=== PATIENT | male | born 1945 | race Caucasian/White ===

== ENCOUNTER 2017-02-21 13:00 | Emergency (ER) | payer MEDICARE, BC ==
[2017-02-21] VITALS (10 sets, daily range): BP systolic 100–142; BP diastolic 61–74; PULSE 89–146; RESP 16; TEMP 97.5; O2SAT 99–100
[~2017-02-21] VITALS: Ht 180.3 cm; Wt 88.0 kg
[~2017-02-21 13:00] MED LIST: BUDE0.5S NEB; FLEC1TAB8 PO; FLUTICASONE SPRAY; LUMBAR BACK BRA1 MIS; ROSU10 PO; ROXICET PO; TYLE325T PO; VENTAER INH; WARF-60 PO; XOLA150S SQ; ZANT150T2 PO; [UNRECOGNIZED DRUG - OTHER] PO
--- NOTE | 2017-02-21 13:13 | PD ---
HPI Chief Complaint: Cardiac Complaint Time Seen by Provider: 13:07 Travel History International Travel<30 days: No Contact w/Intl Traveler<30days: No Traveled to known affect area: No History of Present Illness HPI The patient is a 71-year-old male who presents emergency department for palpitations and tachycardia. The patient has a history of intermittent/ paroxysmal atrial fibrillation and is currently on warfarin and flecainide. The patient takes flecainide 50 mg twice a day and is followed by his client support coordinator/fruit checker, Dr. Hernandez. The patient states he is currently babysitting his grandchildren and states there was a lot of commotion in the house earlier today between the animals and the grandchildren, he felt his heart rate speed up and go in A. fib. The patient states he will intermittently go in atrial fibrillation, however, never lasts more than several hours. He took a Cardizem 60 mg orally at home, however, his heart rate remains elevated. He denies any chest pain, shortness of breath, nausea, vomiting, abdominal pain, or diaphoresis. The patient's primary physician is Dr. Sosa. [facility] Past Medical History Arthritis: Yes Asthma: Yes Atrial Fibrillation: Yes Anxiety: Yes Depression: No Heart Rhythm Problems: Yes (A FIB) Cancer: No Cardiovascular Problems: No High Cholesterol: Yes Chest Pain: No Congestive Heart Failure: No COPD: No Cerebrovascular Accident: No Diabetes: No Diminished Hearing: No Endocrine: No Gastrointestinal Disorders: Yes (ACID INDEGESTION) GERD: Yes Gout: Yes Genitourinary: No Headaches: No Hepatitis: No Hiatal Hernia: No Hypertension: No Immune Disorder: No Implanted Vascular Access Dvce: Yes Kidney Stones: No Musculoskeletal: Yes Neurologic: No Psychiatric: No Reproductive: No Respiratory: Yes Immunizations Current: Yes Migraines: No Renal Failure: No Seizures: No Sickle Cell Disease: No Sleep Apnea: No Thyroid Disease: No Ulcer: No PNEUMOCCOCAL Vaccine (Year): 2 Past Surgical History Abdominal Surgery: Yes (GALL BLADDER) AICD: No Body Medical Devices: LEFT KNEE PARTIAL REPLACEMENT; LENS RIGHT EYE; SIDDHARTH IN BACK Cholecystectomy: Yes Ear Surgery: No Eye Surgery: Yes (RIGHT CATARACT EXTRACTION WITH LENS IMPLANT) Genitourinary Surgery: No Gynecologic Surgery: No Insulin Pump: Yes Joint Replacement: Yes (PARTIAL LEFT KNEE REPLACEMENT) Neurologic Surgery: Yes (LAMINECTOMY L4-L5) Oral Surgery: No Pacemaker: No Other Surgery: Yes (BACK) Social History Alcohol Use: No Tobacco Use: No Substance Use: No Allergies-Medications (Allergen,Severity, Reaction): Coded Allergies: Aleve (Verified Allergy, Severe, THROAT CLOSING, SOB, 02/21/17) Aspirin (Unverified Allergy, Severe, Shortness of Breath, 02/21/17) Dilaudid (Verified Allergy, Severe, Confusion, 02/21/17) Severe confusion Naproxen (Verified Allergy, Severe, 02/21/17) causes shortness of breath anaphylaxis Vicoprofen (Verified Allergy, Severe, ANAPHYLAXIS, 02/21/17) Adhesives (Verified Allergy, Intermediate, Burning, 02/21/17) blisters under eys when taped eyes shut for surgery and right cheek from tape with ETT for surgery. Decadron (Verified Allergy, Unknown, 02/21/17) Doxycycline (Verified Allergy, Unknown, 02/21/17) Uncoded Allergies: adhe (Allergy, Intermediate, Burning, 07/02/14) blisters for tap with ETT and under both eys for taping eyes shut for surgery. CAROLINE TERRAZAS (Adverse Reaction, Severe, Shortness of Breath, 03/26/14) CAROLINE ROQUE (Adverse Reaction, Severe, Shortness of Breath, 03/26/14) Reported Meds & Prescriptions Reported Meds & Active Scripts Active Lumbar Back Brace/Support 1 Mis Mis 1 Ea .ROUTE DIRECTED Reported Warfarin 6 Mg Tab 6 Mg PO DAILY Crestor (Rosuvastatin Calcium) 10 Mg Tab 10 Mg PO DAILY Zantac (Ranitidine HCl) 150 Mg Tab 150 Mg PO BID Flecainide (Flecainide Acetate) 50 Mg Tab 50 Mg PO BID Budesonide Neb 0.5 Mg/2 Ml Neb 0.5 Mg NEB DAILY NEB Tylenol (Acetaminophen) 325 Mg Tab 500 Mg PO Q6H PRN [Clonazepate] 3.75 Mg PO DAILY PRN [Roxicet] 7.5-325 Mg PO Q6HR PRN Ventolin Hfa 18 GM Inh (Albuterol Sulfate) 90 Mcg/Act Aer 2 Puff INH Q4-6H PRN Xolair Inj (Omalizumab) 150 Mg Vial 375 Mg SQ Q14D [Fluticasone [place]] Review of Systems Except as stated in HPI: all other systems reviewed are Neg General / Constitutional: No: Fever Cardiovascular: Positive: Palpitations, Irregular Rhythm, Tachycardia, No: Chest Pain or Discomfort, Diaphoresis, Dyspnea on exertion Respiratory: No: Shortness of Breath Gastrointestinal: No: Nausea, Vomiting, Abdominal Pain Musculoskeletal: No: Edema Neurologic: No: Dizziness Physical Exam Narrative GENERAL: Awake, alert, pleasant 71-year-old male who appears his stated age and is in no acute respiratory distress. SKIN: Focused skin assessment warm/dry. HEAD: Atraumatic. Normocephalic. EYES: Pupils equal and round. No scleral icterus. No injection or drainage. ENT: No nasal bleeding or discharge. Mucous membranes pink and moist. NECK: Trachea midline. No JVD. CARDIOVASCULAR: Irregularly irregular with a heart rate in the 140s. RESPIRATORY: No accessory muscle use. Clear to auscultation. Breath sounds equal bilaterally. GASTROINTESTINAL: Abdomen soft, non-tender, nondistended. MUSCULOSKELETAL: No obvious deformities. No clubbing. No cyanosis. No edema. NEUROLOGICAL: Awake and alert. No obvious cranial nerve deficits. Motor grossly within normal limits. Normal speech. PSYCHIATRIC: Appropriate mood and affect; insight and judgment normal. Data Data Last Documented VS Vital Signs Date Time Temp Pulse Resp B/P Pulse Ox O2 Delivery O2 Flow Rate FiO2 02/21/17 14:23 89 16 110/61 99 Nasal Cannula 2 02/21/17 13:15 97.5 Orders Electrocardiogram (02/21/17 13:07) Ckmb (Isoenzyme) Profile (02/21/17 13:07) Complete Blood Count With Diff (02/21/17 13:07) Comprehensive Metabolic Panel (02/21/17 13:07) Magnesium (Mg) (02/21/17 13:07) Prothrombin Time / Inr (Pt) (02/21/17 13:07) Act Partial Throm Time (Ptt) (02/21/17 13:07) Troponin I (02/21/17 13:07) Chest, Single Ap (02/21/17 13:07) Ecg Monitoring (02/21/17 13:07) Bilateral Bp Monitoring (02/21/17 13:07) Iv Access Insert/Monitor (02/21/17 13:07) Oximetry (02/21/17 13:07) Oxygen Administration (02/21/17 13:07) Sodium Chloride 0.9% Flush (Ns Flush) (02/21/17 13:15) Sodium Chlorid 0.9% 500 Ml Inj (Ns 500 M (02/21/17 13:15) Diltiazem Inj (Cardizem Inj) (02/21/17 13:15) Diltiazem Inj (Cardizem Inj) (02/21/17 13:30) Sodium Chloride 0.9% Flush (Ns Flush) (02/21/17 13:30) CKMB (02/21/17 13:14) CKMB% (02/21/17 13:14) Labs Laboratory Tests Test 02/21/17 13:14 White Blood Count 7.7 TH/MM3 Red Blood Count 5.40 MIL/MM3 Hemoglobin 16.2 GM/DL Hematocrit 46.8 % Mean Corpuscular Volume 86.7 FL Mean Corpuscular Hemoglobin 30.0 PG Mean Corpuscular Hemoglobin 34.6 % Concent Red Cell Distribution Width 13.7 % Platelet Count 240 TH/MM3 Mean Platelet Volume 8.1 FL Neutrophils (%) (Auto) 46.9 % Lymphocytes (%) (Auto) 32.4 % Monocytes (%) (Auto) 9.2 % Eosinophils (%) (Auto) 8.2 % Basophils (%) (Auto) 3.3 % Neutrophils # (Auto) 3.6 TH/MM3 Lymphocytes # (Auto) 2.5 TH/MM3 Monocytes # (Auto) 0.7 TH/MM3 Eosinophils # (Auto) 0.6 TH/MM3 Basophils # (Auto) 0.3 TH/MM3 CBC Comment DIFF FINAL Differential Comment Prothrombin Time 37.6 SEC Prothromb Time International 3.2 RATIO Ratio Activated Partial 43.9 SEC Thromboplast Time Sodium Level 144 MEQ/L Potassium Level 4.1 MEQ/L Chloride Level 110 MEQ/L Carbon Dioxide Level 27.3 MEQ/L Anion Gap 7 MEQ/L Blood Urea Nitrogen 10 MG/DL Creatinine 0.87 MG/DL Estimat Glomerular Filtration 87 ML/MIN Rate Random Glucose 116 MG/DL Calcium Level 9.5 MG/DL Magnesium Level 2.2 MG/DL Total Bilirubin 0.9 MG/DL Aspartate Amino Transf 34 U/L (AST/SGOT) Alanine Aminotransferase 26 U/L (ALT/SGPT) Alkaline Phosphatase 64 U/L Total Creatine Kinase 141 U/L Creatine Kinase MB 1.6 NG/ML Troponin I LESS THAN 0.02 NG/ML Total Protein 7.5 GM/DL Albumin 3.7 GM/DL [facility] Medical Decision Making Medical Screen Exam Complete: Yes Emergency Medical Condition: Yes Medical Record Reviewed: Yes Interpretation(s) EKG reveals atrial fibrillation with RVR, rate 131. Nonspecific ST-T wave changes. Laboratory Tests Test 02/21/17 13:14 White Blood Count 7.7 TH/MM3 Red Blood Count 5.40 MIL/MM3 Hemoglobin 16.2 GM/DL Hematocrit 46.8 % Mean Corpuscular Volume 86.7 FL Mean Corpuscular Hemoglobin 30.0 PG Mean Corpuscular Hemoglobin 34.6 % Concent Red Cell Distribution Width 13.7 % Platelet Count 240 TH/MM3 Mean Platelet Volume 8.1 FL Neutrophils (%) (Auto) 46.9 % Lymphocytes (%) (Auto) 32.4 % Monocytes (%) (Auto) 9.2 % Eosinophils (%) (Auto) 8.2 % Basophils (%) (Auto) 3.3 % Neutrophils # (Auto) 3.6 TH/MM3 Lymphocytes # (Auto) 2.5 TH/MM3 Monocytes # (Auto) 0.7 TH/MM3 Eosinophils # (Auto) 0.6 TH/MM3 Basophils # (Auto) 0.3 TH/MM3 CBC Comment DIFF FINAL Differential Comment Prothrombin Time 37.6 SEC Prothromb Time International 3.2 RATIO Ratio Activated Partial 43.9 SEC Thromboplast Time Sodium Level 144 MEQ/L Potassium Level 4.1 MEQ/L Chloride Level 110 MEQ/L Carbon Dioxide Level 27.3 MEQ/L Anion Gap 7 MEQ/L Blood Urea Nitrogen 10 MG/DL Creatinine 0.87 MG/DL Estimat Glomerular Filtration 87 ML/MIN Rate Random Glucose 116 MG/DL Calcium Level 9.5 MG/DL Magnesium Level 2.2 MG/DL Total Bilirubin 0.9 MG/DL Aspartate Amino Transf 34 U/L (AST/SGOT) Alanine Aminotransferase 26 U/L (ALT/SGPT) Alkaline Phosphatase 64 U/L Total Creatine Kinase 141 U/L Creatine Kinase MB 1.6 NG/ML Troponin I LESS THAN 0.02 NG/ML Total Protein 7.5 GM/DL Albumin 3.7 GM/DL Chest x-ray reveals minimal atelectatic/pleural scarring in the left base, otherwise unremarkable. No acute findings. Repeat EKG #2 reveals normal sinus rhythm with a rate in 91. Moderate intraventricular conduction delay 512 ms. Q wave noted in lead 3. Differential Diagnosis Differential diagnosis includes age of fibrillation with RVR, atrial flutter, SVT, ventricular tachycardia, electrolyte abnormality, cardiomyopathy. Narrative Course IV was established, labs were drawn and sent, and the patient was placed on cardiac telemetry monitoring and continuous pulse oximetry monitoring. EKG was ordered and interpreted. The patient was administered Cardizem 20 mg intravenously and normal saline bolus of 500 cc. Chest x-ray was obtained. Chest x-rays essentially unremarkable. Patient's electrolytes are within normal limits, troponin is negative. After one bolus of Cardizem the patient's heart rate between 110 and 1:30, however, his blood pressure was 100/63. Patient states that his normal blood pressure for him, however, no further boluses were administered, the patient was placed on a Cardizem drip. The patient's fruit checker, Dr. Hernandez, was not insulation extruder operator. The covering fruit checker was Dr. Harvey. The patient's primary physician is Dr. Sosa, therefore, [facility] were paged for admission. INR is therapeutic at 3.2. The patient's Cardizem drip was up to 10 mg/h, at 2:09 PM it appeared the patient converted to a sinus rhythm and his symptoms resolved. Therefore, repeat EKG was ordered and interpreted and the Cardizem drip was stopped to evaluate if the patient will go back in A. fib with RVR or staying in a normal sinus rhythm. The patient was evaluated to 1500, he stayed in normal sinus rhythm, his symptoms had resolved, therefore, he will be discharged home. Diagnosis Primary Impression: Atrial fibrillation with RVR Patient Instructions: General Instructions Additional Instructions: Follow-up with your fruit checker and primary physician. Return if symptoms worsen or progress. Please provide the patient copy of his EKGs and lab results at discharge. Med/Other Pt SpecificInfo: No Change to Meds Disposition: 01 DISCHARGE HOME Condition: Stable Yoan Downey MD Feb 21, 2017 13:13
[2017-02-21] MEDS ORDERED: SODIUM CHLORID 0.9% 500 ML INJ 500 ML IV ONE (13:15)
[2017-02-21] MEDS ORDERED: SODIUM CHLORIDE 0.9% FLUSH 10 ML FLUSH IVF PRN ×2 (13:15→13:30)
[2017-02-21] MEDS ORDERED: DILTIAZEM HCL 25 MG/5 ML VIAL IV ONE (13:15)
[2017-02-21 13:21] LABS: AUTOMATED NEUTROPHIL # 3.6 TH/MM3 (1.8-7.7); BASOPHIL # 0.3 TH/MM3 (0-0.2); BASOPHIL % 3.3 % (0.0-2.0); EOSINOPHIL # 0.6 TH/MM3 (0-0.4); EOSINOPHIL % 8.2 % (0.0-4.0); HEMATOCRIT 46.8 % (39.0-51.0); HEMO FLAGS DIFF FINAL; LYMPH % 32.4 % (9.0-44.0); LYMPHOCYTE # 2.5 TH/MM3 (1.0-4.8); MEAN CELL VOLUME 86.7 FL (80.0-100.0); MEAN CORPUSCULAR HGB CONC 34.6 % (32.0-36.0); MONO % 9.2 % (0.0-8.0); NEUT % 46.9 % (16.0-70.0); PLATELET COUNT 240 TH/MM3 (150-450); RED CELL DISTRIBUTION WIDTH 13.7 % (11.6-17.2); WHITE BLOOD COUNT 7.7 TH/MM3 (4.0-11.0)
[2017-02-21 13:27] LABS: CHLORIDE 110 MEQ/L (98-107); POTASSIUM 4.1 MEQ/L (3.5-5.1); SODIUM (NA) 144 MEQ/L (136-145)
[2017-02-21] MEDS ORDERED: DILTIAZEM INJ 125 MG in SODIUM CHLORIDE 0.9% INJ 100 ML IV SCH (13:30)
[2017-02-21 13:31] LABS: ANION GAP 7 MEQ/L (5-15); BICARBONATE 27.3 MEQ/L (21.0-32.0); BLOOD UREA NITROGEN 10 MG/DL (7-18); MAGNESIUM 2.2 MG/DL (1.5-2.5)
[2017-02-21 13:34] LABS: ALT (GPT) 26 U/L (12-78); AST (GOT) 34 U/L (15-37); GLOMERULAR FILTRATION RATE 87 ML/MIN (>89)
[2017-02-21 13:36] LABS: TOTAL BILIRUBIN ADULT 0.9 MG/DL (0.2-1.0)
[2017-02-21 13:37] LABS: ALKALINE PHOSPHATASE 64 U/L (45-117); CREATINE KINASE 141 U/L (39-308)
[2017-02-21 13:50] LABS: APTT (PATIENT) 43.9 SEC (24.3-30.1); CKMB 1.6 NG/ML (0.5-3.6); INTERNATIONAL NORMALIZED RATIO 3.2 RATIO; PROTHROMBIN TIME - PATIENT 37.6 SEC (9.8-11.6)
--- NOTE | 2017-02-21 14:01 | RADRPT ---
EXAM DATE/TIME: 02/21/2017 13:20 [place] COMPARISON: CHEST SINGLE AP, July 09, 2014, 9:39. INDICATIONS : Rapid irregular heart rate today MEDICAL HISTORY : A Fib SURGICAL HISTORY : None. ENCOUNTER: Initial ACUITY: 1 day PAIN SCORE: 0/10 LOCATION: Bilateral chest FINDINGS: A single view of the chest demonstrates minimal atelectatic changes or pleural-parenchymal scarring l aterally in the left base. Lungs are otherwise clear. Heart size is normal. Osseous structures are in tact CONCLUSION: 1. Minimal atelectatic changes/pleural parenchymal scarring laterally in the left base. 2. Otherwise, no acute cardiopulmonary process. Marcio Waite MD on February 21, 2017 at 13:59 Board Certified Radiologist. This report was verified electronically.
--- NOTE | 2017-02-22 13:48 | EKG ---
Date Performed: 02/21/2017 Time Performed: 13:15:55 PTAGE: 71 years EKG: ATRIAL FIBRILLATION WITH RAPID VENTRICULAR RESPONSE MODERATE INTRAVENTRICULAR CONDUCTION DE LAY NONSPECIFIC ST & T-WAVE ABNORMALITY ABNORMAL RHYTHM ECG Compared to PREVIOUS TRACING , atrial fibrillation is new, clinical correlation is recommended. PREVI OUS TRACIN07/11/2014 07.50 DOCTOR: Colt Clements Interpretating Date/Time 02/22/2017 13:47:03
--- NOTE | 2017-02-22 13:48 | EKG ---
Date Performed: 02/21/2017 Time Performed: 14:14:17 PTAGE: 71 years EKG: Sinus rhythm MODERATE INTRAVENTRICULAR CONDUCTION DELAY BORDERLINE ECG Compared to PREVIOUS TRACING , sinus rhythm replaces atrial fibrillation. PREVIOUS TRACING 017 13.15.55 DOCTOR: Colt Clements Interpretating Date/Time 02/22/2017 13:47:47
== END 2017-02-21 15:23 | disposition home or self-care (01) ==
LOC: PHED 13:00
DX: I48.91 Unspecified atrial fibrillation (principal); R00.0 Tachycardia, unspecified; R94.31 Abnormal electrocardiogram [ECG] [EKG]; E78.00 Pure hypercholesterolemia, unspecified; Z79.01 Long term (current) use of anticoagulants; Z87.39 Personal history of other diseases of the musculoskeletal system and connective tissue; Z87.09 Personal history of other diseases of the respiratory system; Z86.79 Personal history of other diseases of the circulatory system; Z86.59 Personal history of other mental and behavioral disorders; Z87.19 Personal history of other diseases of the digestive system
CPT/HCPCS: 71010; 80053; 82550; 82552; 83735; 84484; 85025; 85610; 85730; 93005; 96361; 96365; 96375; 99285; J7040

== ENCOUNTER 2017-06-23 10:45 | Emergency (ER) | payer MEDICARE, BC ==
[~2017-06-23] VITALS: Ht 180.3 cm; Wt 86.0 kg
[2017-06-23 10:54] VITALS: BP 117/62; PULSE 72; RESP 16; TEMP 97.8; O2SAT 97
[2017-06-23] MEDS ORDERED: ORPHENADRINE INJ 60 MG/2 ML AMP IM ONE (12:30)
[2017-06-23] MEDS ORDERED: CYCL5TAB PO (12:47)
--- NOTE | 2017-06-23 12:48 | PD ---
HPI . Back pain Chief Complaint: Musculoskeletal Complaint Time Seen by Provider: 12:22 Travel History International Travel<30 days: No Contact w/Intl Traveler<30days: No Traveled to known affect area: No History of Present Illness HPI 72-year-old male patient presents emergency department for evaluation of lower back pain. This pain is chronic and has been persistent for 3 years. Patient normally takes Percocet but states his typical Percocet is not working today. Patient denies any new injuries, traumas or falls. She denies any paresthesias. Patient denies any saddle numbness or incontinence of urine or stool. She denies any fevers, chills, chest pain, shortness breath, nausea, vomiting, diarrhea. PFSH Past Medical History Hx Anticoagulant Therapy: Yes (COUMADIN) Arthritis: Yes Asthma: Yes Atrial Fibrillation: Yes Anxiety: Yes Depression: No Heart Rhythm Problems: Yes (A FIB) Cancer: No Cardiovascular Problems: Yes (A. FIB, CHOL,) High Cholesterol: Yes Chest Pain: No Congestive Heart Failure: No COPD: No Cerebrovascular Accident: No Diabetes: No Diminished Hearing: No Endocrine: No GERD: Yes Gout: Yes Genitourinary: No Headaches: No Hepatitis: No Hiatal Hernia: No Heparin Induced Thrombocytopen: No Hypertension: No Immune Disorder: No Implanted Vascular Access Dvce: No Kidney Stones: No Musculoskeletal: Yes Neurologic: No Psychiatric: No Reproductive: No Respiratory: Yes Immunizations Current: Yes Migraines: No Renal Failure: No Seizures: No Sickle Cell Disease: No Sleep Apnea: No Thyroid Disease: No Ulcer: No Tetanus Vaccination: Unknown Influenza Vaccination: No PNEUMOCCOCAL Vaccine (Year): 2 ?: Not Past Surgical History Abdominal Surgery: Yes (GALL BLADDER) AICD: No Body Medical Devices: LEFT KNEE PARTIAL REPLACEMENT; LENS RIGHT EYE; SIDDHARTH IN BACK Cholecystectomy: Yes Ear Surgery: No Eye Surgery: Yes (RIGHT CATARACT EXTRACTION WITH LENS IMPLANT) Genitourinary Surgery: No Gynecologic Surgery: No Insulin Pump: Yes Joint Replacement: Yes (PARTIAL LEFT KNEE REPLACEMENT) Neurologic Surgery: Yes (LAMINECTOMY L4-L5) Oral Surgery: No Pacemaker: No Other Surgery: Yes (BACK) Social History Alcohol Use: No Tobacco Use: No Substance Use: No Allergies-Medications (Allergen,Severity, Reaction): Coded Allergies: aspirin (Verified Allergy, Severe, Shortness of Breath, 06/23/17) hydrocodone (Verified Allergy, Severe, ANAPHYLAXIS, 06/23/17) hydromorphone (Verified Allergy, Severe, Confusion, 06/23/17) Severe confusion ibuprofen (Verified Allergy, Severe, ANAPHYLAXIS, 06/23/17) naproxen (Verified Allergy, Severe, 06/23/17) causes shortness of breath anaphylaxis adhesive (Verified Allergy, Intermediate, Burning, 06/23/17) blisters under eys when taped eyes shut for surgery and right cheek from tape with ETT for surgery. dexamethasone (Verified Allergy, Unknown, 06/23/17) doxycycline (Verified Allergy, Unknown, 06/23/17) Uncoded Allergies: adhe (Allergy, Intermediate, Burning, 07/02/14) blisters for tap with ETT and under both eys for taping eyes shut for surgery. CAROLINE MK (Adverse Reaction, Severe, Shortness of Breath, 03/26/14) CAROLINE JUDE (Adverse Reaction, Severe, Shortness of Breath, 03/26/14) Reported Meds & Prescriptions Reported Meds & Active Scripts Active Flexeril (Cyclobenzaprine HCl) 5 Mg Tab 5 Mg PO TID Lumbar Back Brace/Support 1 Mis Mis 1 Ea .ROUTE DIRECTED Reported Warfarin 6 Mg Tab 6 Mg PO DAILY Crestor (Rosuvastatin Calcium) 10 Mg Tab 10 Mg PO DAILY Zantac (Ranitidine HCl) 150 Mg Tab 150 Mg PO BID Flecainide (Flecainide Acetate) 50 Mg Tab 50 Mg PO BID Budesonide Neb 0.5 Mg/2 Ml Neb 0.5 Mg NEB DAILY NEB Tylenol (Acetaminophen) 325 Mg Tab 500 Mg PO Q6H PRN [Clonazepate] 3.75 Mg PO DAILY PRN [Roxicet] 7.5-325 Mg PO Q6HR PRN Ventolin Hfa 18 GM Inh (Albuterol Sulfate) 90 Mcg/Act Aer 2 Puff INH Q4-6H PRN [Fluticasone [place]] Review of Systems Except as stated in HPI: all other systems reviewed are Neg Physical Exam Narrative GENERAL: Well-nourished, well-developed 72-year-old male patient in no acute distress. Nontoxic-appearing. SKIN: Focused skin assessment warm/dry. HEAD: Normocephalic. Atraumatic NEUROLOGICAL: Awake and alert. Cranial nerves II through XII intact. Motor and sensory grossly within normal limits. Five out of 5 muscle strength in all muscle groups. Normal speech. EYES: No scleral icterus. No injection or drainage. NECK: Supple, trachea midline. No JVD or lymphadenopathy. CARDIOVASCULAR: Regular rate and rhythm without murmurs, gallops, or rubs. RESPIRATORY: Breath sounds equal bilaterally. No accessory muscle use. GASTROINTESTINAL: Abdomen soft, non-tender, nondistended. MUSCULOSKELETAL: Range of motion all extremities. No cyanosis, or edema. BACK: Midline lumbar tenderness over the previous scar from back surgery.. No CVA tenderness. Data Data Last Documented VS Vital Signs Date Time Temp Pulse Resp B/P (MAP) Pulse Ox O2 Delivery O2 Flow Rate FiO2 06/23/17 10:54 97.8 72 16 117/62 (80) 97 Orders Orders Orphenadrine Inj (Norflex Inj) (06/23/17 12:30) Ice/Cold Pack (06/23/17 12:48) Ed Discharge Order (06/23/17 12:48) [facility] Medical Decision Making Medical Screen Exam Complete: Yes Emergency Medical Condition: Yes Differential Diagnosis Differential diagnoses include but not limited to chronic back pain exacerbation , muscular strain, muscular sprain Narrative Course 72-year-old male patient presents emergency department for evaluation of chronic back pain 3 years that has been exacerbated for the last 6 months. Patient denies any falls, traumas, injuries to the area. Patient doesn't appear seizures. Patient denies any fevers, chills, chest pain or shortness breath. Patient denies any incontinence of urine or stool. Patient denies any saddle numbness. Patient has had a history of lumbar surgery and a scar is noted over midline lumbar spine. Patient typically takes a Percocet a day for his back pain but states the Percocet isn't effective today. Originally patient was given going to be given an IM injection of Norflex and Toradol however he is allergic to NSAIDs. Patient given an IM injection of Norflex and discharged home with a prescription for Flexeril with instructions to follow up with his primary care return to the emergency Department with any worsening condition. Diagnosis Primary Impression: Chronic back pain Qualified Codes: M54.5 - Low back pain; G89.29 - Other chronic pain Referrals: Primary Care Physician Patient Instructions: Chronic Back Pain (GEN), General Instructions Additional Instructions: Please return to emergency department if your symptoms return or worsen. Follow up with your primary care provider. Take medications as prescribed. Med/Other Pt SpecificInfo: Prescription(s) given Scripts Cyclobenzaprine (Flexeril) 5 Mg Tab 5 MG PO TID for Muscle Spasm, #10 TAB 0 Refills Prov: Yoselin Tracy 06/23/17 Disposition: 01 DISCHARGE HOME Condition: Stable Yoselin Tracy Jun 23, 2017 12:48
== END 2017-06-23 12:56 | disposition home or self-care (01) ==
LOC: PHEFT 10:45
DX: M54.5 Low back pain (principal); G89.29 Other chronic pain; I48.91 Unspecified atrial fibrillation; Z79.01 Long term (current) use of anticoagulants
CPT/HCPCS: 96372; 99284; J2360

== ENCOUNTER 2017-12-28 09:28 | Emergency (ER) | payer MEDICARE, BC ==
[2017-12-28] VITALS (10 sets, daily range): BP systolic 75–132; BP diastolic 54–65; PULSE 70–134; RESP 16–22; TEMP 97.7–98.1; O2SAT 95–98
[~2017-12-28 09:28] MED LIST changes: +CYCL5TAB PO; +PRED10 PO
[2017-12-28] MEDS ORDERED: DILT60TA PO (09:45)
[2017-12-28] MEDS ORDERED: ROXI30TA14 PO (09:45)
[2017-12-28] MEDS ORDERED: METOPROLOL TARTRATE 5 MG/5 ML VIAL IVS PRN (10:00)
[2017-12-28] MEDS ORDERED: PROCHLORPERAZINE INJ 10 MG/2 ML VIAL IV PUSH ONE (10:00)
[2017-12-28] MEDS ORDERED: SODIUM CHLORIDE 0.9% FLUSH 10 ML FLUSH IVF PRN (10:00)
[2017-12-28] MEDS ORDERED: MORPHINE SULFATE 4 MG/ML INJ IV PUSH ONE (10:00)
[2017-12-28] MEDS ORDERED: diphenhydrAMINE HCL 50 MG/ML VIAL IV PUSH ONE (10:00)
[2017-12-28] MEDS ORDERED: SODIUM CHLOR 0.9% 1000 ML INJ 1,000 ML IV ONE (10:30)
[2017-12-28 11:05] LABS: CHLORIDE 107 MEQ/L (98-107); SODIUM (NA) 141 MEQ/L (136-145)
[2017-12-28 11:08] LABS: INTERNATIONAL NORMALIZED RATIO 2.7 RATIO; PROTHROMBIN TIME - PATIENT 27.6 SEC (9.8-11.6)
[2017-12-28 11:09] LABS: BICARBONATE 24.4 MEQ/L (21.0-32.0); BLOOD UREA NITROGEN 12 MG/DL (7-18); CALCIUM 8.9 MG/DL (8.5-10.1); GLUCOSE,RANDOM 152 MG/DL (74-106); MAGNESIUM 2.3 MG/DL (1.5-2.5)
[2017-12-28 11:13] LABS: CREATININE 0.69 MG/DL (0.60-1.30); GLOMERULAR FILTRATION RATE 113 ML/MIN (>89)
[2017-12-28 11:17] LABS: TROPONIN I LESS THAN 0.02 NG/ML (0.02-0.05)
--- NOTE | 2017-12-28 11:30 | PD ---
HPI . Atrial fibrillation Chief Complaint: Cardiac Complaint Time Seen by Provider: 09:39 Travel History International Travel<30 days: No Contact w/Intl Traveler<30days: No Traveled to known affect area: No History of Present Illness HPI This patient presents with a chief complaint of atrial fibrillation. Onset was sometime shortly after 3 AM. He states that he was awakened from sleep at 3 AM because of severe low back pain. He has a history of chronic low back pain. He took Percocet and does report some relief of his symptoms with Percocet. However, he subsequently developed the rapid heartbeat. He reports some associated shortness of breath. He has a history of intermittent atrial fibrillation. The patient states that he has recently been wearing a Holter monitor. He was scheduled to follow-up with his cryogenic transport driver sometime within the next week or 2. However, the cryogenic transport driver called yesterday and wants to see him today. PFSH Past Medical History Hx Anticoagulant Therapy: Yes (WARFARIN) Arthritis: Yes Asthma: Yes Atrial Fibrillation: Yes Anxiety: Yes Depression: No Heart Rhythm Problems: Yes (A FIB) Cancer: No Cardiovascular Problems: Yes (AFIB) High Cholesterol: Yes Chest Pain: No Congestive Heart Failure: No COPD: No Cerebrovascular Accident: No Diabetes: No Diminished Hearing: No Endocrine: No GERD: Yes Gout: Yes Genitourinary: No Headaches: No Hepatitis: No Hiatal Hernia: No Heparin Induced Thrombocytopen: No Hypertension: No Immune Disorder: No Implanted Vascular Access Dvce: No Kidney Stones: No Musculoskeletal: Yes Neurologic: No Psychiatric: No Reproductive: No Respiratory: Yes Immunizations Current: Yes Migraines: No Renal Failure: No Seizures: No Sickle Cell Disease: No Sleep Apnea: No Thyroid Disease: No Ulcer: No PNEUMOCCOCAL Vaccine (Year): 2 Past Surgical History Abdominal Surgery: Yes (GALL BLADDER) AICD: No Body Medical Devices: LEFT KNEE PARTIAL REPLACEMENT; LENS RIGHT EYE; SIDDHARTH IN BACK Cholecystectomy: Yes Ear Surgery: No Eye Surgery: Yes (RIGHT CATARACT EXTRACTION WITH LENS IMPLANT) Genitourinary Surgery: No Gynecologic Surgery: No Insulin Pump: Yes Joint Replacement: Yes (PARTIAL BILAT KNEE REPLACEMENT) Neurologic Surgery: Yes (LAMINECTOMY L4-L5 X 2) Oral Surgery: No Pacemaker: No Other Surgery: Yes (BACK) Social History Alcohol Use: No Tobacco Use: No Substance Use: No Allergies-Medications (Allergen,Severity, Reaction): Coded Allergies: aspirin (Verified Allergy, Severe, Shortness of Breath, 12/28/17) hydrocodone (Verified Allergy, Severe, ANAPHYLAXIS, 12/28/17) hydromorphone (Verified Allergy, Severe, Confusion, 12/28/17) Severe confusion ibuprofen (Verified Allergy, Severe, ANAPHYLAXIS, 12/28/17) naproxen (Verified Allergy, Severe, SOB, 12/28/17) adhesive (Verified Allergy, Intermediate, Burning, 12/28/17) blisters under eys when taped eyes shut for surgery and right cheek from tape with ETT for surgery. albuterol (Verified Allergy, Unknown, AFIB, 12/28/17) dexamethasone (Verified Allergy, Unknown, SOB, 12/28/17) doxycycline (Verified Allergy, Unknown, SOB, 12/28/17) indomethacin (Verified Allergy, Unknown, SOB, 12/28/17) Uncoded Allergies: CAROLINE ROQUE (Adverse Reaction, Severe, Shortness of Breath, 03/26/14) Reported Meds & Prescriptions Reported Meds & Active Scripts Active Reported Roxicodone (Oxycodone HCl) 30 Mg Tab 30 Mg PO Q6H PRN Diltiazem (Diltiazem HCl) 60 Mg Tab 60 Mg PO DAILY Warfarin 6 Mg Tab 6 Mg PO DAILY Crestor (Rosuvastatin Calcium) 10 Mg Tab 10 Mg PO DAILY Zantac (Ranitidine HCl) 150 Mg Tab 150 Mg PO BID Flecainide (Flecainide Acetate) 50 Mg Tab 50 Mg PO BID Budesonide Neb 0.5 Mg/2 Ml Neb 0.5 Mg NEB DAILY NEB Ventolin Hfa 18 GM Inh (Albuterol Sulfate) 90 Mcg/Act Aer 2 Puff INH Q4-6H PRN Review of Systems Except as stated in HPI: all other systems reviewed are Neg Cardiovascular: Positive: Irregular Rhythm Respiratory: Positive: Shortness of Breath Musculoskeletal: Positive: Pain Physical Exam Narrative GENERAL: Awake and alert and in no acute distress. SKIN: warm/dry. Normal color and turgor. HEAD: Normocephalic. Atraumatic. EYES: Pupils equal and round. No scleral icterus. No injection or drainage. ENT: No nasal bleeding or discharge. Mucous membranes pink and moist. NECK: Trachea midline. Full range of motion without pain.. CARDIOVASCULAR: Irregularly irregular rate and rhythm. His initial rate was 140 -150. RESPIRATORY: No accessory muscle use. Clear to auscultation. Breath sounds equal bilaterally. GASTROINTESTINAL: Abdomen soft. Nontender. Bowel sounds present. Nondistended. MUSCULOSKELETAL: Diffuse tenderness in the lower part of the lumbar back. No point tenderness. NEUROLOGICAL: Awake and alert. No obvious cranial nerve deficits. Motor grossly within normal limits. Normal speech. PSYCHIATRIC: Appropriate mood and affect; insight and judgment normal. Data Data Last Documented VS Vital Signs Date Time Temp Pulse Resp B/P (MAP) Pulse Ox O2 Delivery O2 Flow Rate FiO2 12/28/17 11:11 73 16 106/60 (75) 97 Room Air 12/28/17 09:48 98.1 Orders Orders Electrocardiogram (12/28/17 09:52) Basic Metabolic Panel (Bmp) (12/28/17 09:52) Complete Blood Count With Diff (12/28/17 09:52) Magnesium (Mg) (12/28/17 09:52) Prothrombin Time / Inr (Pt) (12/28/17 09:52) Troponin I (12/28/17 09:52) Ecg Monitoring (12/28/17 09:52) Iv Access Insert/Monitor (12/28/17 09:52) Oximetry (12/28/17 09:52) Morphine Inj (Morphine Inj) (12/28/17 10:00) Sodium Chloride 0.9% Flush (Ns Flush) (12/28/17 10:00) Metoprolol Tartrate Inj (Lopressor Inj) (12/28/17 10:00) Prochlorperazine Inj (Compazine Inj) (12/28/17 10:00) Diphenhydramine Inj (Benadryl Inj) (12/28/17 10:00) Sodium Chlor 0.9% 1000 Ml Inj (Ns 1000 M (12/28/17 10:30) Labs Laboratory Tests Test 12/28/17 10:10 White Blood Count 6.9 TH/MM3 Red Blood Count 4.84 MIL/MM3 Hemoglobin 14.4 GM/DL Hematocrit 42.6 % Mean Corpuscular Volume 88.2 FL Mean Corpuscular Hemoglobin 29.9 PG Mean Corpuscular Hemoglobin Concent 33.9 % Red Cell Distribution Width 14.8 % Platelet Count 189 TH/MM3 Mean Platelet Volume 7.6 FL Neutrophils (%) (Auto) 65.7 % Lymphocytes (%) (Auto) 21.0 % Monocytes (%) (Auto) 10.6 % Eosinophils (%) (Auto) 2.3 % Basophils (%) (Auto) 0.4 % Neutrophils # (Auto) 4.5 TH/MM3 Lymphocytes # (Auto) 1.5 TH/MM3 Monocytes # (Auto) 0.7 TH/MM3 Eosinophils # (Auto) 0.2 TH/MM3 Basophils # (Auto) 0.0 TH/MM3 CBC Comment DIFF FINAL Differential Comment Prothrombin Time 27.6 SEC Prothromb Time International Ratio 2.7 RATIO Blood Urea Nitrogen 12 MG/DL Creatinine 0.69 MG/DL Random Glucose 152 MG/DL Calcium Level 8.9 MG/DL Magnesium Level 2.3 MG/DL Sodium Level 141 MEQ/L Potassium Level 3.6 MEQ/L Chloride Level 107 MEQ/L Carbon Dioxide Level 24.4 MEQ/L Anion Gap 10 MEQ/L Estimat Glomerular Filtration Rate 113 ML/MIN Troponin I LESS THAN 0.02 NG/ML MDM Medical Decision Making Medical Screen Exam Complete: Yes Emergency Medical Condition: Yes Interpretation(s) EKG shows atrial fibrillation with a rapid ventricular response. No acute ischemic changes. Differential Diagnosis Differential diagnosis of tachycardia includes but is not limited to PSVT, atrial fibrillation with a rapid ventricular response, sinus tachycardia (due to hypovolemia, anemia, thyrotoxicosis, PE) Narrative Course This patient presented with a chief complaint of atrial fibrillation with a rapid ventricular response. He has the secondary complaint of exacerbation of chronic low back pain. An IV was placed and he was given metoprolol. He was given 1 dose and it dropped his blood pressure. He has subsequently been treated with a fluid bolus. He is now in a sinus rhythm with a rate in the 60s. Blood pressure is normalizing. CBC Diagram 12/28/17 10:10 BMP Diagram 12/28/17 10:10 Calcium Level 8.9, Magnesium Level 2.3 Troponin less than 0.02 INR 2.7 This patient is now stable for discharge. Critical Care Narrative Aggregate critical care time was 30 minutes. Time to perform other separately billable procedures was not included in the critical care time. My time did not include minutes spent treating any other patients simultaneously or on activities that did not directly contribute to the patient's treatment. The services I provided to this patient were to treat and/or prevent clinically significant deterioration due to AF with RVR I provided critical care services requiring my management, as noted below: Chart data review, documentation time, medication orders and management, vital sign assessments/reviewing monitor data, ordering and reviewing lab tests, ordering and interpreting/reviewing x-rays and diagnostic studies, care of the patient and discussion of the patient with the admitting physicians Diagnosis Primary Impression: Atrial fibrillation with RVR Additional Impression: Low back pain Qualified Codes: M54.5 - Low back pain Patient Instructions: A-fib (Atrial Fibrillation) (DC), General Instructions Disposition: 01 DISCHARGE HOME Condition: Stable Krista Pacheco MD December 28, 2017 11:30
[2017-12-28 11:39] LABS: AUTOMATED NEUTROPHIL # 4.5 TH/MM3 (1.8-7.7); BASOPHIL % 0.4 % (0.0-2.0); EOSINOPHIL # 0.2 TH/MM3 (0-0.4); EOSINOPHIL % 2.3 % (0.0-4.0); HEMATOCRIT 42.6 % (39.0-51.0); HEMOGLOBIN 14.4 GM/DL (13.0-17.0); LYMPHOCYTE # 1.5 TH/MM3 (1.0-4.8); MEAN CELL VOLUME 88.2 FL (80.0-100.0); MEAN CORPUSCULAR HEMOGLOBIN 29.9 PG (27.0-34.0); MEAN CORPUSCULAR HGB CONC 33.9 % (32.0-36.0); MEAN PLATELET VOLUME 7.6 FL (7.0-11.0); MONO % 10.6 % (0.0-8.0); MONOCYTE # 0.7 TH/MM3 (0-0.9); NEUT % 65.7 % (16.0-70.0); PLATELET COUNT 189 TH/MM3 (150-450); RED BLOOD COUNT 4.84 MIL/MM3 (4.50-5.90); RED CELL DISTRIBUTION WIDTH 14.8 % (11.6-17.2); WHITE BLOOD COUNT 6.9 TH/MM3 (4.0-11.0)
--- NOTE | 2017-12-28 19:14 | EKG ---
Date Performed: 12/28/2017 Time Performed: 09:43:41 PTAGE: 72 years EKG: ATRIAL FIBRILLATION WITH RAPID VENTRICULAR RESPONSE MODERATE INTRAVENTRICULAR CONDUCTION DE LAY NONSPECIFIC ST & T-WAVE ABNORMALITY ABNORMAL RHYTHM ECG when compared ot prior ttracing, patient is now in atrial fibrillation with rapid ventricular rate. PREVIOUS TRACING : 12/28/2017 09.35 DOCTOR: Qing Almanzar Interpretating Date/Time 12/28/2017 19:12:23
[2017-12-31] MEDS ORDERED: XOLA150S SQ (11:02)
== END 2017-12-28 12:18 | disposition home or self-care (01) ==
LOC: PHED 09:28
DX: I48.91 Unspecified atrial fibrillation (principal); M54.5 Low back pain; G89.29 Other chronic pain; R94.31 Abnormal electrocardiogram [ECG] [EKG]; J45.909 Unspecified asthma, uncomplicated; F41.9 Anxiety disorder, unspecified; E78.00 Pure hypercholesterolemia, unspecified; K21.9 Gastro-esophageal reflux disease without esophagitis
CPT/HCPCS: 80048; 83735; 84484; 85025; 85610; 93005; 96361; 96374; 96375; 99291; J0780; J1200; J2270; J7030